=== PATIENT | male | born 1985 | race Caucasian/White ===

== ENCOUNTER 2023-06-13 20:09 | Emergency (ER) | payer OTHER | END 2023-06-13 22:17 | disposition home or self-care (01) | LOC: JD.ED 20:09 | DX: S82.831A Other fracture of upper and lower end of right fibula, initial encounter for closed fracture (principal); W00.0XXA Fall on same level due to ice and snow, initial encounter; Y93.01 Activity, walking, marching and hiking | CPT/HCPCS: 29515; 73610-26-RT; 73610-RT; 99282; 99283 ==

== ENCOUNTER 2023-06-19 08:00 | Day surgery (SDC) | payer OTHER ==
[~2023-06-19 08:00] MED LIST: EPINEPHrine 1 MG/ML SDV ONE; Ropivacaine 0.5% 5 MG/ML 30 ML SDV ONE; Sodium Chloride 0.9% 10 ML Syringe FLUSH PRN; Sodium Chloride 0.9% 10 ML Syringe FLUSH SCH
[2023-06-19] MEDS: Lactated Ringers 1,000 ML IV SCH ×2 (08:10→15:39)
[2023-06-19] MEDS ORDERED: Propofol 200 MG/20 ML SDV ONE (08:41)
[2023-06-19] MEDS ORDERED: Lidocaine 1% 5 ML VIAL ONE (08:41)
[2023-06-19] MEDS ORDERED: Ondansetron 4 MG/2 ML SDV ONE (08:41)
[2023-06-19] MEDS ORDERED: Midazolam 1 MG/ML 2 ML SDV ONE ×2 (08:41→11:22)
[2023-06-19] MEDS ORDERED: Dexamethasone 4 MG/ML 5 ML MDV ONE (08:42)
[2023-06-19] MEDS ORDERED: fentaNYL 250 MCG/5 ML SDV ONE (08:42)
[2023-06-19] MEDS ORDERED: Lidocaine 1% 2 ML ONE (08:42)
[2023-06-19] MEDS ORDERED: dexmedeTOMIDine HCl 200 MCG/2 ML SDV ONE (09:14)
[2023-06-19] MEDS ORDERED: ceFAZolin 2 GM Vial ONE (10:52)
[2023-06-19] MEDS ORDERED: Phenylephrine 1% 10 MG/ML SDV ONE (11:29)
[2023-06-19] MEDS ORDERED: Ondansetron 4 MG/2 ML SDV IVPUSH PRN (11:42)
[2023-06-19] MEDS ORDERED: HYDROmorphone 0.5 MG/0.5 ML Syringe IVPUSH PRN (11:42)
[2023-06-19] MEDS ORDERED: fentaNYL 100 MCG/2 ML SDV IVPUSH PRN (11:42)
[2023-06-19] MEDS ORDERED: Ketorolac 30 MG/ML SDV ONE (11:57)
== END 2023-06-19 16:35 | disposition home or self-care (01) ==
LOC: JD.SDS 08:00
PROVIDERS: ATTEND Orthopaedic Surgery
DX: S82.841A Displaced bimalleolar fracture of right lower leg, initial encounter for closed fracture (principal); S82.891A Other fracture of right lower leg, initial encounter for closed fracture; Y93.01 Activity, walking, marching and hiking
CPT/HCPCS: 01480; 64450; 76000; 76000-26; C1713; C1776; J0171; J0690; J1100; J1885; J2250; J2371; J2405; J2704; J2795; J3010; J3490; J7120